=== PATIENT | male | born 1970 | race Caucasian/White ===

== ENCOUNTER 2021-05-18 04:49 | Emergency (ER) | payer OTHER ==
[2021-05-18] MEDS ORDERED: Sodium Chloride 0.9% 10 ML Syringe FLUSH PRN (05:05)
[2021-05-18] MEDS ORDERED: Sodium Chloride 0.9% 1,000 ML IV ONE (05:05)
[2021-05-18] MEDS ORDERED: Famotidine 20 MG/2 ML SDV IVPUSH ONE (05:05)
[2021-05-18] MEDS ORDERED: Prochlorperazine 5 MG in Sodium Chloride 0.9% 50 ML IV ONE (05:05)
--- NOTE | 2021-05-18 05:11 | EDM.PDOC ---
ED HPI GENERAL MEDICAL PROBLEM - General Chief Complaint: Gastrointestinal Problem Stated Complaint: VOMITING FOR HOURS Time Seen by Provider: 05/18/21 04:58 Source of Information: Reports: Patient History Limitations: Reports: No Limitations - History of Present Illness INITIAL COMMENTS - FREE TEXT/NARRATIVE: Patient presents emergency room secondary to nausea vomiting has now turned into dry heaves states that he has been vomiting all night approximately the last 5 hours. He also reports that now is starting to feel dehydrated and lightheaded or dizzy also states that he has been having fevers and chills. She denies any urinary symptoms. He states that he does have Crohn's disease and he has had some left-sided abdominal discomfort similar to previous mild flares but the vomiting is unrelated. Patient states that he is a drinking alcoholic his last drink was around 7 PM last night he drinks about 10 drinks of hard liquor a day per his report. Patient states when asked that he does have a gallbladder PMH--chron's, alcoholism, HTN Meds--remicaid infusion q 6 wks, lisinopril NKDA Tob/Drugs--denies EtOH--10+ drinks hard liquor daily -patient states he has not had COVID infection or COVID immunization Onset: Today left side abd pain Pain Score (Numeric/FACES): 6 - Related Data Allergies Allergy/AdvReac Type Severity Reaction Status Date / Time No Known Allergies Allergy Verified 05/18/21 05:01 Social & Family History - Tobacco Use Tobacco Use Status *Q: Never Tobacco User - Caffeine Use Caffeine Use: Reports: Coffee - Alcohol Use Number of Drinks Per Day: 10 Date of Last Drink: 05/17/21 Time of Last Drink: 19:00 - Recreational Drug Use Recreational Drug Use: No ED ROS GENERAL - Review of Systems Review Of Systems: Comprehensive ROS is negative, except as noted in HPI. Constitutional: Reports: Fever, Chills GI/Abdominal: Reports: Nausea, Vomiting. Denies: Diarrhea ED EXAM, GI/ABD - Physical Exam Exam: See Below Exam Limited By: No Limitations General Appearance: Alert, WD/WN, Moderate Distress (secondary to vomiting/abdominal pain), Obese Eyes: Bilateral: Normal Appearance, EOMI Ears: Normal External Exam, Hearing Grossly Normal Nose: Normal Inspection Throat/Mouth: Normal Inspection, Normal Voice, No Airway Compromise Head: Atraumatic, Normocephalic Neck: Normal Inspection, Supple, Non-Tender, Full Range of Motion Respiratory/Chest: No Respiratory Distress, Lungs Clear, Normal Breath Sounds, No Accessory Muscle Use Cardiovascular: Normal Peripheral Pulses, Regular Rate, Rhythm, No Edema, No Murmur GI/Abdominal Exam: Normal Bowel Sounds, Soft, Tender (focal RUQ, diffuse midabdominal area/epigastric). No: Guarding, Rigid, Rebound (Male) Exam: Deferred Rectal (Males) Exam: Deferred Back Exam: Normal Inspection Extremities: Normal Inspection, Normal Range of Motion, No Pedal Edema, Normal Capillary Refill Neurological: Alert, Oriented, Normal Cognition, No Motor/Sensory Deficits Psychiatric: Normal Affect, Normal Mood Skin Exam: Warm, Dry, Intact, Normal Color Course - Vital Signs Text/Narrative:: 0554--labs reviewed, no acute concerns. will continue with IVF hydration, p atient has received pepcid and compazine. if continued improvement over the next hour will d/c home with PCM follow up as needed 0651--no further vomiting, reviewed d/c with patient. ready for d/c when IVF completed Last Recorded V/S: Last Vital Signs Temp 97.1 F 05/18/21 05:05 Pulse 51 L 05/18/21 05:05 Resp 22 H 05/18/21 05:05 BP 190/98 H 05/18/21 05:05 Pulse Ox 100 05/18/21 05:05 - Orders/Labs/Meds Orders: Active Orders 24 hr Category Date Time Status Sodium Chloride 0.9% [Saline Flush] Med 05/18/21 05:05 Active 10 ml FLUSH ASDIRECTED PRN Saline Lock Insert [OM.PC] Routine Oth 05/18/21 05:05 Ordered Medication Orders Sodium Chloride (Sodium Chloride 0.9% 10 Ml Syringe) 10 ml FLUSH ASDIRECTED PRN PRN Reason: Keep Vein Open Last Admin: 05/18/21 05:33 Dose: 10 ml Documented by: FRANCESCA Labs: Laboratory Tests 05/18/21 05/18/21 Range/Units 05:20 05:20 WBC 9.3 (4.5-11.0) K/uL RBC 5.18 (4.30-5.90) M/uL Hgb 16.9 H (12.0-15.0) g/dL Hct 47.6 (40.0-54.0) % MCV 92 (80-98) fL MCH 33 H (27-31) pg MCHC 36 (32-36) % Plt Count 356 (150-400) K/uL Neut % (Auto) 66.2 H (36-66) % Lymph % (Auto) 19.6 L (24-44) % [place] % (Auto) 10.6 H (2-6) % Eos % (Auto) 2.2 (2-4) % Baso % (Auto) 1.4 H (0-1) % Sodium 141 (140-148) mmol/L Potassium 4.1 (3.6-5.2) mmol/L Chloride 101 (100-108) mmol/L Carbon Dioxide 27 (21-32) mmol/L Anion Gap 12.6 (5.0-14.0) mmol/L BUN 15 (7-18) mg/dL Creatinine 1.1 (0.8-1.3) mg/dL Est Cr Clr Drug Dosing 76.00 mL/min Estimated GFR (MDRD) > 60 (>60) Glucose 132 H (74-106) mg/dL Calcium 9.5 (8.5-10.1) mg/dL Total Bilirubin 0.5 (0.2-1.0) mg/dL AST 29 (15-37) U/L ALT 31 (12-78) U/L Alkaline Phosphatase 68 (46-116) U/L Total Protein 7.5 (6.4-8.2) g/dL Albumin 4.1 (3.4-5.0) g/dL Globulin 3.4 (2.3-3.5) g/dL Albumin/Globulin Ratio 1.2 (1.2-2.2) Amylase 71 (25-115) U/L Lipase 149 (73-393) U/L Meds: Medications Generic Name Dose Route Start Last Admin Trade Name Freq PRN Reason Stop Dose Admin Sodium Chloride 10 ml 05/18/21 05:05 05/18/21 05:33 Sodium Chloride 0.9% 10 Ml Syringe FLUSH 10 ml ASDIRECTED PRN Administration Keep Vein Open Discontinued Medications Generic Name Dose Route Start Last Admin Trade Name Freq PRN Reason Stop Dose Admin Famotidine 20 mg 05/18/21 05:05 05/18/21 05:33 Famotidine 20 Mg/2 Ml Sdv IVPUSH 05/18/21 05:06 20 mg ONETIME ONE Administration Prochlorperazine Edisylate 5 51 mls @ 150 mls/hr 05/18/21 05:05 05/18/21 05:33 mg/ Sodium Chloride IV 05/18/21 05:25 150 mls/hr ONETIME ONE Administration Sodium Chloride 1,000 mls @ 999 mls/hr 05/18/21 05:05 05/18/21 05:33 Normal Saline IV 05/18/21 06:05 999 mls/hr .BOLUS ONE Administration Departure - Departure Time of Disposition: 06:51 Disposition: Home, Self-Care 01 Clinical Impression: Gastroenteritis, Nausea & vomiting, Alcoholism, Crohn disease - Discharge Information *PRESCRIPTION DRUG MONITORING PROGRAM REVIEWED*: Not Applicable *COPY OF PRESCRIPTION DRUG MONITORING REPORT IN PATIENT PILY: Not Applicable Instructions: Nausea and Vomiting, Adult, [id number], Dehydration, Adult, [id number] Referrals: PCP,None [Primary Care Provider] - Forms: ED Department Discharge Additional Instructions: Ensure you are drinking plenty of fluids--water, juice, sports drinks of choice to stay hydrated (avoid excessive amounts of alcohol) You have been provided prescriptions for vomiting as well as to reduce stomach acid You are encouraged to get the COVID immunization due to your chronic medical conditions/immunocompromised status--due to these you are at higher risk for COVID related complication Advance diet slowly--soft/bland foods, resume normal diet in the next 1-2 days as you feel better Follow up with your PCM/Family doctor if any further questions/concerns as well as ongoing chronic medical care Sepsis Event Note (ED) - Evaluation Sepsis Screening Result: No Definite Risk - Focused Exam Vital Signs: Vital Signs Temp Pulse Resp BP Pulse Ox 05/18/21 05:05 97.1 F 51 L 22 H 190/98 H 100 05/18/21 05:02 97.1 F 51 L 22 H 190/98 H 100 - My Orders Last 24 Hours: My Active Orders 05/18/21 05:05 Sodium Chloride 0.9% [Saline Flush] 10 ml FLUSH ASDIRECTED PRN Saline Lock Insert [OM.PC] Routine - Assessment/Plan Last 24 Hours: My Active Orders 05/18/21 05:05 Sodium Chloride 0.9% [Saline Flush] 10 ml FLUSH ASDIRECTED PRN Saline Lock Insert [OM.PC] Routine
== END 2021-05-18 07:03 | disposition home or self-care (01) ==
LOC: JP.ED 04:49
DX: K52.9 Noninfective gastroenteritis and colitis, unspecified (principal); K50.90 Crohn's disease, unspecified, without complications; F10.20 Alcohol dependence, uncomplicated; I10 Essential (primary) hypertension; Z79.899 Other long term (current) drug therapy
CPT/HCPCS: 36415; 80053; 82150; 83690; 85025; 96365; 96375; 99284; J0780; J3490; J7030